=== PATIENT | female | born 1985 | race Two or more races ===

== ENCOUNTER 2020-10-13 05:16 | Day surgery (SDC) | payer OTHER ==
[~2020-10-13 05:16] MED LIST: PRENATAL CAPLE1 EACH PO
== END 2020-10-13 20:20 | disposition home or self-care (01) ==
LOC: CIR.AMB 05:16
PROVIDERS: ATTEND Obstetrics & Gynecology
DX: O34.32 Maternal care for cervical incompetence, second trimester (principal); Z3A.15 15 weeks gestation of pregnancy; Z20.822 Contact with and (suspected) exposure to COVID-19

== ENCOUNTER → 2020-11-21 | Outpatient (CLI) | payer OTHER ==
[~2020-11-21] MED LIST changes: +ADULT LOW DOSE81 M1 PO; +ATABEX DHA 200200 MG PO
== END | disposition home or self-care (01) ==
LOC: PRENATAL 10:51
PROVIDERS: ATTEND Obstetrics & Gynecology Maternal & Fetal Medicine
DX: O35.3XX1 Maternal care for (suspected) damage to fetus from viral disease in mother, fetus 1 (principal); O35.0XX1 Maternal care for (suspected) central nervous system malformation in fetus, fetus 1; O98.512 Other viral diseases complicating pregnancy, second trimester; O09.512 Supervision of elderly primigravida, second trimester; O99.212 Obesity complicating pregnancy, second trimester; Z36.89 Encounter for other specified antenatal screening; Z3A.22 22 weeks gestation of pregnancy

== ENCOUNTER 2021-01-01 18:39 | Outpatient (CLI) | payer OTHER ==
[~2021-01-01 18:39] MED LIST changes: -ADULT LOW DOSE81 M1 PO; -ATABEX DHA 200200 MG PO
[2021-01-01] MEDS ORDERED: ATABEX DHA 200200 MG PO (19:14)
[2021-01-01] MEDS ORDERED: ADULT LOW DOSE81 M1 PO (19:15)
== END 2021-01-02 12:50 | disposition home or self-care (01) ==
LOC: OBS/DEL 18:39
PROVIDERS: ATTEND Obstetrics & Gynecology
DX: O34.32 Maternal care for cervical incompetence, second trimester (principal); O26.892 Other specified pregnancy related conditions, second trimester; G44.59 Other complicated headache syndrome; Z3A.27 27 weeks gestation of pregnancy; Z20.822 Contact with and (suspected) exposure to COVID-19

== ENCOUNTER 2021-01-16 14:43 | Outpatient (CLI) | payer OTHER ==
[~2021-01-16 14:43] MED LIST changes: +ADULT LOW DOSE81 M1 PO; +ATABEX DHA 200200 MG PO
[2021-01-16] MEDS ORDERED: PRENATAL CAPLE1 EAC1 PO (14:56)
[2021-01-16] MEDS ORDERED: ADULT LOW DOSE81 M1 PO (14:56)
== END 2021-01-17 11:35 | disposition home or self-care (01) ==
LOC: OBS/DEL 14:43
PROVIDERS: ATTEND Obstetrics & Gynecology
DX: O26.843 Uterine size-date discrepancy, third trimester (principal); O99.213 Obesity complicating pregnancy, third trimester; O09.213 Supervision of pregnancy with history of pre-term labor, third trimester; O34.33 Maternal care for cervical incompetence, third trimester; O26.853 Spotting complicating pregnancy, third trimester; Z3A.29 29 weeks gestation of pregnancy

== ENCOUNTER 2021-02-22 11:16 | Inpatient (IN) | payer OTHER ==
[~2021-02-22] VITALS: Ht 157.5 cm; Wt 106.1 kg
[~2021-02-22 11:16] MED LIST changes: +PRENATAL CAPLE1 EAC1 PO
[2021-02-22] MEDS ORDERED: PROGESTERONA (12:42)
[2021-02-24] MEDS ORDERED: NIFEDIPINE20 MG PO ×2 (06:59→07:08)
== END 2021-02-24 11:06 | disposition home or self-care (01) | DRG 832 ==
LOC: LDR 11:16 → OB/GYN 02-23 10:03
PROVIDERS: ADMIT Obstetrics & Gynecology; ATTEND Obstetrics & Gynecology
PROC: 4A1HXFZ Monitoring of Products of Conception, Cardiac Rhythm, External Approach (ICD-10-PCS; principal; 2021-02-22)
PROC: BY4FZZZ Ultrasonography of Third Trimester, Single Fetus (ICD-10-PCS; 2021-02-23)
DX: O34.33 Maternal care for cervical incompetence, third trimester (principal); O47.03 False labor before 37 completed weeks of gestation, third trimester; Z3A.34 34 weeks gestation of pregnancy

== ENCOUNTER 2021-03-02 06:02 | Inpatient (IN) | payer OTHER ==
[~2021-03-02] VITALS: Ht 157.5 cm; Wt 106.1 kg
[~2021-03-02 06:02] MED LIST changes: +NIFEDIPINE20 MG PO; +PROGESTERONA
[2021-03-02] MEDS ORDERED: PRENATAL TABLE1 EAC1 PO (06:25)
== END 2021-03-04 14:25 | disposition home or self-care (01) | DRG 768 ==
LOC: OBS/DEL 06:02 → LDR 07:02 → OB/GYN 07:02
PROVIDERS: ADMIT Obstetrics & Gynecology; ATTEND Obstetrics & Gynecology
PROC: 10E0XZZ Delivery of Products of Conception, External Approach (ICD-10-PCS; principal; 2021-03-02)
PROC: 0UCC7ZZ Extirpation of Matter from Cervix, Via Natural or Artificial Opening (ICD-10-PCS; 2021-03-02)
PROC: 0UQG7ZZ Repair Vagina, Via Natural or Artificial Opening (ICD-10-PCS; 2021-03-02)
PROC: 4A1HXFZ Monitoring of Products of Conception, Cardiac Rhythm, External Approach (ICD-10-PCS; 2021-03-02)
DX: O34.33 Maternal care for cervical incompetence, third trimester (principal); Z37.0 Single live birth; O71.4 Obstetric high vaginal laceration alone; O99.02 Anemia complicating childbirth; D64.9 Anemia, unspecified; Z3A.36 36 weeks gestation of pregnancy

== ENCOUNTER 2023-11-01 06:00 | Day surgery (SDC) | payer OTHER ==
[2023-10-26 09:43] LABS: PH,URINE 5.5 (5.0-8.0); URINE APPEARANCE Clear; URINE BILIRRUBIN Negative (NEGATIVE); URINE BLOOD Moderate; URINE COLOR Yellow; URINE GLUCOSE Negative (NEGATIVE); URINE LEUKOCYTE Trace; URINE NITRATE Negative; URINE PROTEIN Negative (NEGATIVE); URINE UROBILINOGEN 0.2 E.U./dl
[2023-10-26 09:45] LABS: HEMATOCRIT 39.1 % (36.0-45.00); HEMOGLOBIN 13.2 g/dL (12.0-15.00); MEAN CELL VOLUME 84.7 fL (80.00-100.00); MEAN CORPUSCULAR HEMOGLOBIN 28.6 pg (27.00-32.0); MEAN CORPUSCULAR HGB CONC 33.8 g/dl (32.0-36.0); PLATELET COUNT 442 K/uL (150-450); RED BLOOD COUNT 4.62 M/uL (4.00-6.00); RED CELL DISTRIBUTION WIDTH 13.6 % (11.5-14.5)
[2023-10-26 09:48] LABS: URINE BACTERIA 535.4 uL (0.0-1933); URINE EPITHELIAL CELLS 19.2 uL (0.0-38.8); URINE RBC 32.8 uL (0.0-20.8); URINE WBC 9.7 uL (0.0-23.2)
[2023-10-26 10:06] LABS: INR 0.97; PARTIAL THROMBOPLASTIN TIME 28.8 SECONDS (22.0-34.0); PROTHROMBIN TIME 10.2 SECONDS (9.0-11.5)
[2023-10-26 10:38] LABS: ALBUMIN 3.5 gm/dL (3.4-5.0); BILIRUBIN TOTAL 0.29 mg/dL (0.3-1.2); CALCIUM 9.2 mg/dL (8.5-10.1); CREATININE SERUM 0.64 mg/dL (0.55-1.02); GFR 103.31; GLOBULINA 3.9 G/DL (2.4-3.5); TOTAL PROTEIN 7.4 gm/dL (6.4-8.2)
[2023-10-26 10:58] LABS: POTASSIUM 4.21 mEq/L (3.5-5.1)
[~2023-11-01 06:00] MED LIST changes: +PRENATAL TABLE1 EAC1 PO
[2023-11-01] MEDS ORDERED: CEFAZOLIN SODIUM 1,000 MG VIAL IV ONE (11:45)
[2023-11-01] MEDS ORDERED: POVIDONE-IODINE 118 ML BOTT TOP ONE (11:45)
[2023-11-01] MEDS ORDERED: SUGAMMADEX SODIUM 200 MG/2 ML VIAL IV ONE ×2 (12:15→12:30)
[2023-11-01] MEDS ORDERED: RINGERS SOLUTION,LACTATED 1,000 ML IV SCH (12:30)
[2023-11-01] MEDS ORDERED: FAMOTIDINE/PF 20 MG/2 ML VIAL IV ONE (12:30)
[2023-11-01] MEDS ORDERED: ONDANSETRON HCL 2 MG/ML VIAL IV PRN (12:30)
[2023-11-01] MEDS ORDERED: MORPHINE SULFATE 4 MG/ML VIAL IV PRN (12:30)
[2023-11-01] MEDS ORDERED: KETOROLAC TROMETHAMINE 30 MG VIAL IV ONE (12:30)
[2023-11-01] MEDS ORDERED: ONDANSETRON HCL 2 MG/ML VIAL ONE (13:21)
== END 2023-11-01 15:15 | disposition home or self-care (01) ==
LOC: CIR.AMB 06:00
PROVIDERS: ATTEND General Practice
DX: Z30.2 Encounter for sterilization (principal)